=== PATIENT | female | born 1955 ===

== ENCOUNTER 2017-03-22 14:34 | Emergency (ER) | payer MEDICAID ==
[2017-03-22] MEDS ORDERED: Sodium Chloride 0.9% 1,000 ML IV STA (15:21)
--- NOTE | 2017-03-22 15:57 | ED PDOC ---
HPI: Psych/Substance Abuse Time Seen by Provider: 03/22/17 15:00 Chief Complaint (Nursing): Anxiety Chief Complaint (Provider): Anxiety History Per: Patient, Family History/Exam Limitations: no limitations Onset/Duration Of Symptoms: Days (x2) Current Symptoms Are (Timing): Still Present Additional Complaint(s): Debbie Martinez is a 61 year old female with a past medical history of anxiety and alcohol abuse who presents to the ED due to breathlessness, anxiety, and numbness and tingling in her fingertips x2 days. Denies suicidal or homicidal ideations. Patient states she does not take any medication, nor see a psychiatrist or therapist. Also states she drinks to alleviate anxiety, but it isnt working. Daughter states patient drinks 1 bottle of vodka a day. Patient also has a history of lymphoma in remission. Patient denies any other complaints. PMD: Non-[facility] Provider Past Medical History Vital Signs: Last Vital Signs Temp 98.2 F 03/22/17 14:51 Pulse 101 H 03/22/17 14:51 Resp 16 03/22/17 14:51 BP 121/73 03/22/17 14:51 Pulse Ox 100 03/22/17 14:51 - Medical History PMH: Anxiety - Family History Family History: States: Unknown Family Hx - Social History Alcohol: > 2 Drinks/Day (1 bottle of vodka) - Home Medications Home Medications: Ambulatory Orders Medication Instructions Recorded Alprazolam [Xanax] 0.25 mg PO DAILY PRN #5 tab 05/11/14 Alprazolam [Xanax] 0.25 mg PO Q12 PRN #5 tab 11/12/14 Ciprofloxacin/Ciprofloxa HCl 500 mg PO Q12 #14 tab 11/12/14 [Ciprofloxacin] Cephalexin [Keflex] 500 mg PO TID #21 capsule 03/22/17 - Allergies Allergies/Adverse Reactions: Allergies Allergy/AdvReac Type Severity Reaction Status Date / Time No Known Allergies Allergy Verified 05/11/14 11:29 Review of Systems ROS Statement: Except As Marked, All Systems Reviewed And Found Negative Neurological: Positive for: Numbness (and tingling in fingertips) Psych: Positive for: Anxiety. Negative for: Suicidal ideation Physical Exam - Reviewed Nursing Documentation Reviewed: Yes Vital Signs Reviewed: Yes - Physical Exam Appears: Positive for: Well, Non-toxic, No Acute Distress Head Exam: Positive for: ATRAUMATIC, NORMAL INSPECTION, NORMOCEPHALIC Skin: Positive for: Normal Color, Warm, Dry. Negative for: Rash Eye Exam: Positive for: Normal appearance, EOMI, PERRL Cardiovascular/Chest: Positive for: Regular Rate, Rhythm. Negative for: Murmur Respiratory: Positive for: Normal Breath Sounds (Lungs clear to auscultation). Negative for: Respiratory Distress Extremity: Positive for: Normal ROM. Negative for: Pedal Edema Neurologic/Psych: Positive for: Alert, Oriented, Gait (Pacing in room). Negative for: Motor/Sensory Deficits, Facial Droop - Laboratory Results Result Diagrams: 03/22/17 16:16 03/22/17 16:16 - ECG O2 Sat by Pulse Oximetry: 100 (RA) Pulse Ox Interpretation: Normal - Progress ED Course And Treament: ATIVAN 1 MG IV X 1 DOSE ROCEPHIN 1 GM IV X 1 DOSE NS 1 LITER WIDE OPEN KDUR 40 MEQ X 1 DOSE SEEN BY CRISIS CLEARED BY DR. RETANA FOR D/C HOME DIAGNOSIS ANXIETY ALCOHOL ABUSE. Medical Decision Making Medical Decision Making: Time: 15:07 Initial Impression: Anxiety Plan: --EKG --Alcohol serum --CMP --Drug screen, urine --TSH --CBC w/ differential --Ativan 1 mg IVP --Sodium Chloride 0.9% 1,000 ml IV --Urinalysis --Reevaluation Time: 15:47 --EKG Findings: 92 bpm, NSR --Troponin I --Reevaluation Scribe Attestation: Documented by Sriram Zee, acting as a scribe for Brian Aguilar PA-C Provider Scribe Attestation: All medical record entries made by the Scribe were at my direction and personally dictated by me. I have reviewed the chart and agree that the record accurately reflects my personal performance of the history, physical exam, medical decision making, and the department course for this patient. I have also personally directed, reviewed, and agree with the discharge instructions and disposition. Disposition - Clinical Impression Clinical Impression: Anxiety disorder, UTI (urinary tract infection) - Patient ED Disposition Is Patient to be Admitted: No - Disposition Referrals: [facility] [Outside] Disposition: Routine/Home Disposition Time: 18:51 Condition: FAIR Additional Instructions: MENTAL HEALTH SERVICES: [facility] [address], [place] [phone] PLEASE REFER TO PRINT OUT GIVEN TO YOU WITH REGARDS TO HOURS OF OPERATION FOR RENTAL ASSISTANCE SERVICES [facility] [address], [place] [phone] PLEASE REFER TO PRINT OUT GIVEN TO YOU THAT EXPLAIN WHAT DOCUMENTS YOU WILL NEED TO BRING WITH YOU TO THIS AGENCY FOR SUBSTANCE ABUSE TREATMENT [facility] [phone] PLEASE REFER TO PRINT OUT PROVIDED TO YOU. THIS TELEPHONE INTAKE WILL TAKE ABOUT 30 MINUTES AND UPON COMPLETION YOU WILL BE SET UP WITH SUBSTANCE ABUSE RECOVERY TREATMENT. Prescriptions: Cephalexin [Keflex] 500 mg PO TID #21 capsule Instructions: Urinary Tract Infection in Women (DC), Anxiety (ED) Forms: [employer] (Polish)
[2017-03-22 16:22] LABS: BASO % 0.5 % (0.0-2.0); EOS % 0.6 % (0.0-4.0); HEMATOCRIT 34.2 % (34.0-47.0); LYMPH # 2.1 K/uL (1.0-4.3); LYMPH % 29.3 % (20.0-40.0); MEAN CELL VOLUME 88.6 fl (81.0-99.0); MEAN CORPUSCULAR HEMOGLOBIN 29.2 pg (27.0-31.0); MEAN PLATELET VOLUME 9.8 fl (7.2-11.7); MONO # 0.6 K/uL (0.0-0.8); MONO % 8.8 % (0.0-10.0); NEUT # 4.3 K/uL (1.8-7.0); NEUT % 60.8 % (50.0-75.0); NRBC % 0.1 % (0.0-0.0); WHITE BLOOD COUNT 7.1 K/uL (4.8-10.8)
[2017-03-22 16:32] LABS: RBC URINE 33 /hpf (0-3); URINE BACTERIA MOD (<OCC); URINE BILIRUBIN NEGATIVE (NEGATIVE); URINE BLOOD MODERATE (NEGATIVE); URINE COLOR AMBER (YELLOW); URINE GLUCOSE (UA) NEG (Normal); URINE KETONE TRACE mg/dL (NEGATIVE); URINE LEUKOCYTE ESTERASE MOD Leu/uL (Negative); URINE PROTEIN 100 mg/dL (NEGATIVE); WBC URINE 170 /hpf (0-5)
[2017-03-22 16:33] LABS: ALB/GLOB RATIO 1.5 (1.0-2.1); ALCOHOL SERUM 242 mg/dl (0-10); ALKALINE PHOSPHATASE 105 U/L (38-126); ALT/SGPT 96 U/L (9-52); AST/SGOT 192 U/L (14-36); BILIRUBIN,TOTAL 1.8 mg/dl (0.2-1.3); BLOOD UREA NITROGEN 7 mg/dl (7-17); CALCIUM 8.6 mg/dL (8.4-10.2); CARBON DIOXIDE 22 mmol/L (22-30); CHLORIDE 105 mmol/L (98-107); GFR AFRICAN-AMERICAN > 60; GLUCOSE,RANDOM 107 mg/dL (65-105); POTASSIUM 3.4 MMOL/L (3.6-5.0); SODIUM 144 mmol/l (132-148); TOTAL PROTEIN 7.5 G/DL (6.3-8.2)
[2017-03-22] MEDS ORDERED: cefTRIAXone (Rocephin) 1 gm Inj IVPB ONE (16:57)
[2017-03-22] MEDS ORDERED: cefTRIAXone IV 1 gm in Dextros 50 ML IVPB ONE ×2 (17:00→17:41)
[2017-03-22 17:06] LABS: THYROID STIMULATING HORMONE 7.05 mIU/ML (0.46-4.68)
[2017-03-22] MEDS ORDERED: Potassium Chloride 20 mEq ER Tab PO STA (18:01)
[2017-03-22] MEDS ORDERED: Potassium Chloride 20 mEq ER Tab PO ONE (18:15)
[2017-03-22 18:25] VITALS: BP 138/68; RESP 18
[2017-03-22 18:52] VITALS: PULSE 94; TEMP 98
[2017-03-23 00:34] VITALS: O2SAT 100
--- NOTE | 2017-03-23 11:49 | CARD ---
APPROVED REPORT EKG Measurement Heart [id number] <Conclusion> Normal sinus rhythm Junctional ST depression, probably normal Borderline ECG
== END 2017-03-22 18:51 | disposition home or self-care (01) ==
LOC: H.ER 14:34
DX: F41.9 Anxiety disorder, unspecified (principal); N39.0 Urinary tract infection, site not specified; Z85.72 Personal history of non-Hodgkin lymphomas; F10.10 Alcohol abuse, uncomplicated
CPT/HCPCS: 80053; 80320; 80324; 80345; 80346; 80349; 80353; 80358; 80361; 81003; 83992; 84443; 84484; 85025; 87086; 93005; 96374; 99282; J0696; J2060; J7040

== ENCOUNTER 2017-03-23 04:25 | Emergency (ER) | payer MEDICAID ==
[2017-03-23 04:55] VITALS: RESP 16; TEMP 98.7; O2SAT 98
[2017-03-23] MEDS ORDERED: Sodium Chloride 0.9% 1,000 ML IV STA (05:01)
--- NOTE | 2017-03-23 05:06 | ED PDOC ---
HPI: Psych/Substance Abuse Time Seen by Provider: 03/23/17 04:45 Chief Complaint (Nursing): Anxiety Chief Complaint (Provider): anxiety History Per: Patient History/Exam Limitations: no limitations Onset/Duration Of Symptoms: Days, Waxing/Waning Current Symptoms Are (Timing): Still Present Additional History Per: Patient Additional Complaint(s): 61 y/o female history of anxiety, lymphoma (in remission) presents with feelings of anxiety x a few hours. Patient states she was seen in ED yesterday for same, felt slightly improved after being discharged but symptoms returned. Patient notes feeling "shaky". States her boyfriend left her and she cannot afford the rent in her apartment by herself so she is going to lose it. Denies fever, headache, dizziness, extremity numbness/weakness, chest pain, shortness of breath, palpitations, abdominal pain, suicidal/homicidal ideations, hallucinations. Past Medical History Reviewed: Historical Data, Nursing Documentation, Vital Signs Vital Signs: Last Vital Signs Temp 98.7 F 03/23/17 04:51 Pulse 114 H 03/23/17 04:51 Resp 16 03/23/17 04:51 BP 144/93 H 03/23/17 04:51 Pulse Ox 98 03/23/17 04:51 - Medical History PMH: Anxiety Denies: Diabetes, Hepatitis, HIV, HTN, Chronic Kidney Disease, Seizures, Sexually Transmitted Disease - Family History Family History: States: Unknown Family Hx - Immunization History Hx Tetanus Toxoid Vaccination: No Hx Influenza Vaccination: No Hx Pneumococcal Vaccination: No - Home Medications Home Medications: Ambulatory Orders Medication Instructions Recorded Alprazolam [Xanax] 0.25 mg PO DAILY PRN #5 tab 05/11/14 Alprazolam [Xanax] 0.25 mg PO Q12 PRN #5 tab 11/12/14 Ciprofloxacin/Ciprofloxa HCl 500 mg PO Q12 #14 tab 11/12/14 [Ciprofloxacin] Cephalexin [Keflex] 500 mg PO TID #21 capsule 03/22/17 - Allergies Allergies/Adverse Reactions: Allergies Allergy/AdvReac Type Severity Reaction Status Date / Time No Known Allergies Allergy Verified 05/11/14 11:29 Review of Systems ROS Statement: Except As Marked, All Systems Reviewed And Found Negative Psych: Positive for: Anxiety Physical Exam - Reviewed Nursing Documentation Reviewed: Yes Vital Signs Reviewed: Yes - Physical Exam Appears: Positive for: Well, Non-toxic, Uncomfortable (anxious, trembling) Skin: Positive for: Normal Color ENT: Positive for: Normal ENT Inspection Cardiovascular/Chest: Positive for: Regular Rate, Rhythm Respiratory: Positive for: Normal Breath Sounds Gastrointestinal/Abdominal: Positive for: Normal Exam Back: Positive for: Normal Inspection Extremity: Positive for: Normal ROM Neurologic/Psych: Positive for: Alert, Oriented - ECG ECG: Positive for: Viewed By Me (reviewed by ED attending) ECG Rhythm: Positive for: Sinus Tachycardia O2 Sat by Pulse Oximetry: 98 - Progress ED Course And Treament: ekg, IV fluids, IV ativan, crisis eval Patient evaluated by platform worker, does not meet criteria for admission. INformation given for outpatient follow up. Patient reports improvement of symptoms and is stable for discharge. Return to ED for worsening/concerning symptoms. Disposition - Clinical Impression Clinical Impression: Anxiety - Patient ED Disposition Is Patient to be Admitted: No Counseled Patient/Family Regarding: Studies Performed, Diagnosis, Need For Followup - Disposition Disposition: Routine/Home Disposition Time: 06:00 Condition: IMPROVED Instructions: Anxiety (ED)
[2017-03-23] MEDS ORDERED: Multivitamin (MVI) 10 ML, Folic Acid 1 MG, Thiamine 100 MG in Dextrose 5%/0.45% NS 1,00... IV ONE (05:09)
[2017-03-23] MEDS ORDERED: Lorazepam 2 mg/ml (10ml) Sol IV STA (05:11)
[2017-03-23] MEDS ORDERED: Multivitamin (MVI) 10 ML, Thiamine 100 MG in Dextrose 5%/0.45% NS 1,000 ML IV ONE (05:30)
[2017-03-23 06:54] VITALS: BP 142/69; PULSE 93
--- NOTE | 2017-03-23 11:45 | CARD ---
APPROVED REPORT EKG Measurement Heart [id number] <Conclusion> Sinus tachycardia Otherwise normal ECG
== END 2017-03-23 06:53 | disposition home or self-care (01) ==
LOC: H.ER 04:25
DX: F41.9 Anxiety disorder, unspecified (principal); Z85.72 Personal history of non-Hodgkin lymphomas; R00.0 Tachycardia, unspecified
CPT/HCPCS: 93005; 96365; 96366; 96375; 99282; J2060; J3411; J7040; J7042